=== PATIENT | female | born 1980 | race African-American/Black ===

== ENCOUNTER 2019-10-22 07:10 | Observation (INO) | payer MEDICAID ==
[~2019-10-22] VITALS: Ht 157.5 cm; Wt 114.3 kg
[2019-10-22] VITALS (7 sets, daily range): BP systolic 144–192; BP diastolic 88–137
--- NOTE | 2019-10-22 07:10 | NUR ---
TO ROOM 15 VIA EMS STRETCHER. PT TRANSFERRED WITH STAND BY ASSIST. RESPS EVEN AND UNLABORED ON O2 VIA NC, ABLE TO SPEAK IN COMPLETE SENTENCES.
[2019-10-22] MEDS ORDERED: METHYLDOPA500 M1 PO (07:37)
--- NOTE | 2019-10-22 08:18 | NUR ---
ASSISTED TO BATHROOM WITH STEADY GAIT. MONITORS REATTACHED.
[2019-10-22 08:36] LABS: HEMATOCRIT 42.6 % (37.0-47.0); HEMOGLOBIN 13.8 g/dl (12.0-16.0); IMMATURE GRANULOCYTES 0.3 % (0.0-5.0); MEAN CELL VOLUME 87.7 fL CALC (80.0-100.0); MEAN CORPUSCULAR HGB 28.4 pG CALC (26.0-32.0); MEAN CORPUSCULAR HGB CONC 32.4 g/dL CAL (32.0-36.0); NEUT# 4.29 thou/uL (2.00-7.15); RED BLOOD COUNT 4.86 mill/uL (4.20-5.60); RED CELL DISTRI WIDTH 13.5 % (11.5-15.5)
--- NOTE | 2019-10-22 09:20 | NUR ---
RESTING ON STRETCHER WITH HOB ELEVATED. RESPS EVEN AND UNLABORED ON ROOM AIR. CALL LIGHT WITHIN REACH.
[2019-10-22 09:36] LABS: ALBUMIN 4.4 g/dL (3.2-5.0); ALKALINE PHOSPHATASE 91 u/l (38-126); ANION GAP 12 (6-22 (CALC)); BILIRUBIN, TOTAL 0.3 mg/dL (0.0-1.4); BUN 13 mg/dL (7-17); BUN/CREATININE RATIO 22 (12-20 (CALC)); CARBON DIOXIDE 21 mmol/l (22-30); CHLORIDE 106 mmol/l (95-108); CREATININE 0.6 mg/dL (0.5-1.0); GFR > 60 ML/MIN (>=60 (CALC)); GFR FOR AFR.AMER. > 60 ML/MIN (>=60 (CALC)); POTASSIUM 3.6 mmol/l (3.5-5.1); SGOT/AST 31 u/l (14-36); SODIUM 135 mmol/l (137-146); TOTAL PROTEIN 7.7 g/dL (6.3-8.2)
--- NOTE | 2019-10-22 10:09 | NUR ---
PT IN STRETCHER WITH HOB ELEVATED. MEDICATED WITH NORMADYNE 10MG SLOW IVP FOR BP 196/124 HR 75. PT REQUESTING SOMETHING TO EAT. WILL CONTINUE TO MONITOR.
--- NOTE | 2019-10-22 10:53 | NUR ---
IN STRETCHER WITH HOB ELEVATED. MEDICATED WITH NOMADYNE 10MG SLOW IVP FOR BP 198/116 HR 69. WILL CONTINUE TO MONITOR.
--- NOTE | 2019-10-22 11:30 | NUR ---
PT RESTING ON STRETCHER; NO S/S OF DISTRESS NOTED; PT ADVISED OF CONTINUED WAIT TIME; WILL CONTINUE TO MONITOR
--- NOTE | 2019-10-22 12:30 | NUR ---
MANUAL BP OBTAINED. 174/112 HR 79
--- NOTE | 2019-10-22 12:33 | NUR ---
PHONE CALL TO DR MORRIS, NEW ORDERS RECEIVED.
--- NOTE | 2019-10-22 12:44 | NUR ---
MEDICATED WITH NORVASC 5MG PO AND HYDRALAZINE 10MG IVP FOR MANUAL BP 174/112 HR 79.
--- NOTE | 2019-10-22 13:20 | NUR ---
NURSE TO NURSE REPORT CALLED TO ISHA MOREJON
--- NOTE | 2019-10-22 13:30 | NUR ---
PT ARRIVED TO FLOOR VIA WC ACCOMPANIED BY ED STAFF. PT IS ALERT AND ORIENTED. AMBULATES W/ 1 PERSON ASSIST R/T RIGHT KNEE "GIVING OUT" AT TIMES. TELE UNIT IN PLACE. REQUESTING EMS IVS BE REMOVED R/T DISCOMFORT. SITE REMOVED. PT DENIES PAIN AT THIS TIME. REPORTING OF CONCERNS ENCOURAGED. PT ORIENTED TO ROOM AND EQUIPMENT. CALL LIGHT REVIEWED AND IN REACH. PLAN OF CARE DISCUSSED. FALL PRECAUTIONS REINFORCED. PT STATES UNDERSTANDING OF INFORMATION.
--- NOTE | 2019-10-22 13:30 | NUR ---
TO ROOM 274 IN STABLE CONDITION VIA WHEELCHAIR.
--- NOTE | 2019-10-22 16:07 | NUR ---
BP 192/137, HR 88 BPM. ANA LOPEZ NOTIFIED. NEW ORDER FOR CLONIDINE 0.2 MG PO GIVEN. MED ADMINISTERED. WILL CONTINUE TO MONITOR.
--- NOTE | 2019-10-22 19:52 | NUR ---
PT BP REASSESSED FOR ELEVATED BP REPORTED BY FUNDING SPECIALIST. MANUAL OBTAINED @164/88. PT SITTING IN RECLINER TALKING ON CELLPHONE AND ASKING ABOUT SNACKS PROVIDED. NO S/O DISTRESS AT THIS TIME.
--- NOTE | 2019-10-22 23:39 | NUR ---
PT MEDICATED FOR SLEEP PROVIDED ICECREAM REQUESTED AND PROVIDED INHAILER PER REQUEST. PT UP WALKING AROUND THE ROOM TALKING STATING SHE "CAN'T HAVE A BM." PT REPORTS LAST STOOL OUTPUT WAS TWO DAYS AGO. PT PROVIDED WARM PRUNE JUICE, BUT REFUSES M.OF MAG. OFFERED PT TO PLACE MASK ON AND WALK THE HORVATH, C/O SOME MILD GAS FEELINGS.
--- NOTE | 2019-10-23 02:15 | NUR ---
PT MEDICATED FOR BURGOS. PT C/O BEING HOT, AIR TURNED COOLER/ROOM IS WARM. PT DENIED ANY OTHER NEEDS AT THIS TIME.
[2019-10-23 04:04] VITALS: BP 142/80
[2019-10-23 05:48] LABS: CHOLESTEROL HDL RATIO 3.3 (<4.4 (CALC))
[2019-10-23 07:30] VITALS: BP 161/99
--- NOTE | 2019-10-23 07:30 | NUR ---
ASSESSMENT IS COMPLTED: IV SITE IS FREE FROM REDNESS OR EDEMA. HR IS REG,PULSES ARE STRONG X4, ABD IS SOFT WITH ACTIVE BS. BREATH SOUNDS ARE CLEAR,BILATERALLY, TELE MONITOR IN PLACE. CONTINUE TO OSBERVE AND MONITOR.
[2019-10-23 10:30] VITALS: BP 171/102
[2019-10-23] MEDS ORDERED: AMLODIPINE BESYL5 MG PO (11:49)
[2019-10-23] MEDS ORDERED: catapres PO ×2 (11:51)
[2019-10-23 11:56] VITALS: BP 161/105
--- NOTE | 2019-10-23 12:00 | NUR ---
PT IS RESTING IN BED WITH NO DISTRESS N OTED. IV SITE IS FREE FROM REDNESS OR EDEMA.
[2019-10-23 12:35] VITALS: BP 147/91
--- NOTE | 2019-10-23 13:45 | NUR ---
IV SITE DISCONTINEUD CATHETER INTACT, NO REDNESS OR EDEMA. TELE MONITOR TAKEN OFF.
--- NOTE | 2019-10-23 13:53 | NUR ---
PT BEING TRANSFERRED TO BE DISCHARGED VIA WC WITH STAFF/
--- NOTE | 2019-10-23 13:53 | NUR ---
PT RECEIVED DISCHARGE INSTRUCTIONS. IV SITE DISCONITNUED CATHETER INTACT. NO REDNESS OR EDEMA. PT VERBALIZED UNDERSTANDING. Discharge instructions given. Patient verbalizes understanding of same. Discharged in stable condition via Wheelchair to Home with family. All belongings sent with pt.
== END 2019-10-23 13:53 | disposition home or self-care (01) ==
LOC: ED 07:10 → ED-I 10:41 → ED 10:53 → MS2 10:54 → ED-I 10:54 → MS2 12:41
PROVIDERS: Family Medicine; ADMIT Internal Medicine; ATTEND Internal Medicine
DX: I16.0 Hypertensive urgency (principal); I10 Essential (primary) hypertension; J45.909 Unspecified asthma, uncomplicated; E66.9 Obesity, unspecified; R94.31 Abnormal electrocardiogram [ECG] [EKG]; I25.2 Old myocardial infarction; Z86.73 Personal history of transient ischemic attack (TIA), and cerebral infarction without residual deficits; Z20.828 Contact with and (suspected) exposure to other viral communicable diseases
CPT/HCPCS: G0378

== ENCOUNTER 2019-12-20 12:20 | Emergency (ER) | payer MEDICAID ==
[~2019-12-20] VITALS: Ht 157.5 cm; Wt 104.0 kg
[~2019-12-20 12:20] MED LIST: AMLODIPINE BESYL5 MG PO; METHYLDOPA500 M1 PO; catapres PO
[2019-12-20 12:59] LABS: HEMATOCRIT 43.3 % (37.0-47.0); HEMOGLOBIN 13.7 g/dl (12.0-16.0); IMMATURE GRANULOCYTES 0.3 % (0.0-5.0); MEAN CELL VOLUME 87.3 fL CALC (80.0-100.0); MEAN CORPUSCULAR HGB 27.6 pG CALC (26.0-32.0); MEAN CORPUSCULAR HGB CONC 31.6 g/dL CAL (32.0-36.0); NEUT# 4.45 thou/uL (2.00-7.15); RED BLOOD COUNT 4.96 mill/uL (4.20-5.60); RED CELL DISTRI WIDTH 13.9 % (11.5-15.5)
[2019-12-20 13:01] LABS: URINE BILIRUBIN - DIPSTICK NEGATIVE (NEGATIVE); URINE BLOOD DIPSTICK TRACE-INTACT (NEGATIVE); URINE COLOR YELLOW; URINE GLUCOSE - DIPSTICK NEGATIVE (NEGATIVE); URINE KETONE NEGATIVE (NEGATIVE); URINE LEUK ESTERASE NEGATIVE (NEGATIVE); URINE NITRITE - DIPSTICK NEGATIVE (Negative); URINE PH 5.5 (4.5-8.0); URINE PROTEIN - DIPSTICK NEGATIVE (NEG-TRACE); URINE SPECIFIC GRAVITY 1.025; URINE UROBILINOGEN - DIPSTICK 0.2 E.U./dL (0.2)
[2019-12-20 13:09] LABS: ALBUMIN 3.6 g/dL (3.2-5.0); ALKALINE PHOSPHATASE 87 u/l (38-126); ANION GAP 13 (6-22 (CALC)); BILIRUBIN, TOTAL 0.3 mg/dL (0.0-1.4); BUN 12 mg/dL (7-17); BUN/CREATININE RATIO 16 (12-20 (CALC)); CARBON DIOXIDE 22 mmol/l (22-30); CHLORIDE 102 mmol/l (95-108); CREATININE 0.8 mg/dL (0.5-1.0); ETHYL ALCOHOL 0 mg/dl (0-30); GFR > 60 ML/MIN (>=60 (CALC)); GFR FOR AFR.AMER. > 60 ML/MIN (>=60 (CALC)); POTASSIUM 3.1 mmol/l (3.5-5.1); SGOT/AST 25 u/l (14-36); SODIUM 134 mmol/l (137-146); TOTAL PROTEIN 6.7 g/dL (6.3-8.2)
[2019-12-20 13:43] VITALS: BP 156/78
== END 2019-12-20 13:43 | disposition designated cancer center or children's hospital (05) ==
LOC: ED 12:20
DX: S50.812A Abrasion of left forearm, initial encounter (principal); F31.9 Bipolar disorder, unspecified; F41.9 Anxiety disorder, unspecified; I10 Essential (primary) hypertension; X78.9XXA Intentional self-harm by unspecified sharp object, initial encounter

== ENCOUNTER 2019-12-28 09:02 | Emergency (ER) | payer MEDICAID ==
[~2019-12-28] VITALS: Ht 157.5 cm; Wt 106.0 kg
[2019-12-28 09:49] LABS: HEMATOCRIT 45.2 % (37.0-47.0); HEMOGLOBIN 14.4 g/dl (12.0-16.0); IMMATURE GRANULOCYTES 0.3 % (0.0-5.0); MEAN CELL VOLUME 86.3 fL CALC (80.0-100.0); MEAN CORPUSCULAR HGB 27.5 pG CALC (26.0-32.0); MEAN CORPUSCULAR HGB CONC 31.9 g/dL CAL (32.0-36.0); NEUT# 10.07 thou/uL (2.00-7.15); RED BLOOD COUNT 5.24 mill/uL (4.20-5.60)
[2019-12-28 10:07] LABS: ALKALINE PHOSPHATASE 88 u/l (38-126); ANION GAP 12 (6-22 (CALC)); BILIRUBIN, TOTAL 0.3 mg/dL (0.0-1.4); BUN 9 mg/dL (7-17); BUN/CREATININE RATIO 14 (12-20 (CALC)); CARBON DIOXIDE 22 mmol/l (22-30); CHLORIDE 104 mmol/l (95-108); CREATININE 0.6 mg/dL (0.5-1.0); ETHYL ALCOHOL 0 mg/dl (0-30); GFR > 60 ML/MIN (>=60 (CALC)); GFR FOR AFR.AMER. > 60 ML/MIN (>=60 (CALC)); HCG SERUM/URINE (NEG/POS) NEGATIVE (NEGATIVE); LIPASE 16 u/l (23-300); POTASSIUM 3.7 mmol/l (3.5-5.1); SGOT/AST 24 u/l (14-36); SODIUM 134 mmol/l (137-146); TOTAL PROTEIN 7.2 g/dL (6.3-8.2)
[2019-12-28] MEDS ORDERED: TRILEPTAL150 MG PO (10:10)
[2019-12-28] MEDS ORDERED: TRAZODONE100 MG PO (10:10)
[2019-12-28] MEDS ORDERED: PROVENTIL108 MCG/AC IN (10:12)
[2019-12-28] MEDS ORDERED: TESSALON PER100 MG PO ×2 (11:24)
[2019-12-28] MEDS ORDERED: ZITHROMAX250 MG PO (11:24)
[2019-12-28 11:34] VITALS: BP 145/78
== END 2019-12-28 11:38 | disposition home or self-care (01) ==
LOC: ED 09:02
DX: J45.909 Unspecified asthma, uncomplicated (principal); J32.9 Chronic sinusitis, unspecified; I10 Essential (primary) hypertension; F31.9 Bipolar disorder, unspecified; F17.200 Nicotine dependence, unspecified, uncomplicated; Z20.828 Contact with and (suspected) exposure to other viral communicable diseases

== ENCOUNTER 2020-01-10 14:50 | Emergency (ER) | payer MEDICAID ==
[~2020-01-10] VITALS: Ht 157.5 cm; Wt 115.9 kg
[~2020-01-10 14:50] MED LIST changes: +PROVENTIL108 MCG/AC IN; +TESSALON PER100 MG PO; +TRAZODONE100 MG PO; +TRILEPTAL150 MG PO; +ZITHROMAX250 MG PO
[2020-01-10 16:50] VITALS: BP 155/74
== END 2020-01-10 16:50 | disposition home or self-care (01) ==
LOC: ED 14:50
DX: S80.811A Abrasion, right lower leg, initial encounter (principal); I10 Essential (primary) hypertension; F17.200 Nicotine dependence, unspecified, uncomplicated; W13.3XXA Fall through floor, initial encounter; Y92.008 Other place in unspecified non-institutional (private) residence as the place of occurrence of the external cause

== ENCOUNTER 2020-01-13 16:09 | Emergency (ER) | payer MEDICAID ==
[~2020-01-13] VITALS: Ht 157.5 cm; Wt 122.0 kg
[2020-01-13 16:39] LABS: HEMATOCRIT 41.9 % (37.0-47.0); HEMOGLOBIN 13.4 g/dl (12.0-16.0); IMMATURE GRANULOCYTES 0.1 % (0.0-5.0); MEAN CELL VOLUME 86.9 fL CALC (80.0-100.0); MEAN CORPUSCULAR HGB 27.8 pG CALC (26.0-32.0); NEUT# 3.61 thou/uL (2.00-7.15); RED BLOOD COUNT 4.82 mill/uL (4.20-5.60)
[2020-01-13 16:55] LABS: ALBUMIN 3.7 g/dL (3.2-5.0); ALKALINE PHOSPHATASE 73 u/l (38-126); ANION GAP 11 (6-22 (CALC)); BILIRUBIN, TOTAL 0.2 mg/dL (0.0-1.4); BUN 9 mg/dL (7-17); BUN/CREATININE RATIO 14 (12-20 (CALC)); CARBON DIOXIDE 22 mmol/l (22-30); CHLORIDE 108 mmol/l (95-108); CREATININE 0.7 mg/dL (0.5-1.0); GFR > 60 ML/MIN (>=60 (CALC)); GFR FOR AFR.AMER. > 60 ML/MIN (>=60 (CALC)); POTASSIUM 3.5 mmol/l (3.5-5.1); SGOT/AST 24 u/l (14-36); SODIUM 137 mmol/l (137-146); TOTAL PROTEIN 6.9 g/dL (6.3-8.2)
[2020-01-13 17:08] LABS: ACT PARTIAL THROMBO TIME 24.8 SECONDS (20.0-32.5); PROTHROMBIN TIME 10.1 SECONDS (9.0-12.5)
[2020-01-13] MEDS ORDERED: FLUOXETINE20 MG PO (17:12)
[2020-01-13] MEDS ORDERED: ZITHROMAX250 MG PO (17:14)
[2020-01-13] MEDS ORDERED: RISPERDAL2 MG PO (17:15)
[2020-01-13] MEDS ORDERED: CYMBALTA60 MG PO (17:16)
[2020-01-13 18:50] VITALS: BP 143/78
== END 2020-01-13 18:50 | disposition home or self-care (01) ==
LOC: ED 16:09
PROVIDERS: Student in an Organized Health Care Education/Training Program
DX: R07.9 Chest pain, unspecified (principal); I10 Essential (primary) hypertension; F17.200 Nicotine dependence, unspecified, uncomplicated

== ENCOUNTER 2020-01-30 02:00 | Emergency (ER) | payer MEDICAID ==
[~2020-01-30] VITALS: Ht 157.5 cm; Wt 104.5 kg
[~2020-01-30 02:00] MED LIST changes: +CYMBALTA60 MG PO; +FLUOXETINE20 MG PO; +RISPERDAL2 MG PO
[2020-01-30] MEDS ORDERED: CLONIDINE0.1 MG PO (02:19)
[2020-01-30] MEDS ORDERED: TORADOL PO (03:22)
[2020-01-30 03:27] VITALS: BP 134/78
== END 2020-01-30 07:19 | disposition home or self-care (01) ==
LOC: ED 02:00
DX: F41.9 Anxiety disorder, unspecified (principal); F31.9 Bipolar disorder, unspecified; M17.0 Bilateral primary osteoarthritis of knee; I10 Essential (primary) hypertension